=== PATIENT | female | born 1985 | race African-American/Black ===

== ENCOUNTER 2022-08-22 08:00 | Emergency (ER) | payer OTHER ==
[~2022-08-22] VITALS: Ht 167.6 cm; Wt 68.2 kg
[2022-08-22 08:17] VITALS: BP 148/114
[2022-08-22 08:55] LABS: BASOPHILS % 0.6 % (0.0-2.0); EOSINOPHILS % 1.5 % (0.0-5.0); HEMATOCRIT. 43.5 % (36.0-48.0); HEMOGLOBIN. 14.6 g/dL (12.0-16.0); LYMPHOCYTES % 13.9 % (20.0-50.0); MEAN CORPUSCULAR VOLUME 92.6 fL (81.0-99.0); MEAN PLATELET VOLUME 8.1 fl (7.4-10.4); PLATELET 434 x1000/uL (130-400); RED CELL DISTRIBUTION WIDTH 14.8 % (11.6-14.6)
[2022-08-22 09:04] LABS: CHLORIDE 109 mEq/L (98-107)
[2022-08-25] MEDS ORDERED: DOXY100C5 MT (07:58)
== END 2022-08-22 10:18 | disposition left against medical advice (07) ==
LOC: ER 08:00
DX: Z53.21 Procedure and treatment not carried out due to patient leaving prior to being seen by health care provider (principal)
CPT/HCPCS: 36415; 80053; 85025; 99281

== ENCOUNTER 2022-08-22 11:16 | Emergency (ER) | payer OTHER ==
[~2022-08-22] VITALS: Ht 167.6 cm; Wt 68.2 kg
[2022-08-22 11:20] VITALS: O2SAT 95
[2022-08-22] MEDS ORDERED: ONDANSETRON HCL 4MG/2ML INJ IV ONE (12:00)
[2022-08-22] MEDS: FAMOTIDINE 20MG/2ML VIAL IV SCH ×2 (12:00→13:14)
[2022-08-22] MEDS ORDERED: SODIUM CHLORIDE 0.9% 1,000 ML IV ONE (12:00)
[2022-08-22 12:32] LABS: CLARITY URINE CLOUDY (CLEAR); COLOR URINE DARK YELLOW (YELLOW); GLUCOSE URINE NEGATIVE (NEGATIVE); KETONES URINE 3+ (NEGATIVE); LEUKOCYTE ESTERASE URINE 1+ (NEGATIVE); NITRITE URINE NEGATIVE (NEGATIVE); OCCULT BLOOD URINE 2+ (NEGATIVE); PH URINE >=9.0 (4.5-8.0); PROTEIN URINE 2+ (NEGATIVE); SPECIFIC GRAVITY URINE 1.032 (1.005-1.030)
[2022-08-22 12:33] LABS: SQUAMOUS EPITHELIAL CELL URINE 3+ /lpf (RARE/1+); YEAST URINE NONE SEEN
[2022-08-22 12:45] LABS: BACTERIA URINE 2+
[2022-08-22 12:46] LABS: MUCUS URINE 2+ /lpf (< = 2+)
[2022-08-22] MEDS ORDERED: MAGNESIUM/ALUMINUM HYDROXIDE/SIMETHICONE 30ML UDC PO ONE (13:00)
[2022-08-22] MEDS ORDERED: KETOROLAC 30MG/ML VIAL IV ONE (13:00)
[2022-08-22] MEDS ORDERED: METOCLOPRAMIDE HCL 10MG/2ML VIAL IV ONE (14:15)
[2022-08-22] MEDS ORDERED: MORPHINE SULFATE 4 MG/ML CPJ (NOT FOR IM USE) IV ONE (16:15)
[2022-08-22] MEDS ORDERED: IOHEXOL-300 100 ML BOTTLE ONE (17:16)
[2022-08-22] MEDS ORDERED: HYDROCODONE/ACETAMINOPHEN 5/325MG TABLET PO PRN (19:45)
[2022-08-22 20:04] VITALS: BP 144/95; PULSE 81; RESP 16; TEMP 97.5
[2022-08-25] MEDS ORDERED: DOXY100C5 MT (07:58)
== END 2022-08-22 20:06 | disposition home or self-care (01) ==
LOC: ER 11:16
DX: R11.2 Nausea with vomiting, unspecified (principal); Z98.890 Other specified postprocedural states
CPT/HCPCS: 81003; 81025; 74177; 76830; 76856; 96361; 96374; 96375; 99285; Q9967; J3490; J1885; J2765; J2405; J2270; J7030; C1893; Z7610

== ENCOUNTER 2024-01-15 10:17 | Emergency (ER) | payer MEDICAID, OTHER ==
[~2024-01-15] VITALS: Ht 167.6 cm; Wt 68.0 kg
[~2024-01-15 10:17] MED LIST: DOXY100C5 MT
[2024-01-15 10:24] VITALS: O2SAT 100
[2024-01-15] MEDS: KETOROLAC 30MG/ML VIAL IM ONE (11:28)
[2024-01-15] MEDS ORDERED: TOPUD MT (12:16)
[2024-01-15 13:00] VITALS: BP 132/82; PULSE 82; RESP 16; TEMP 37.05852; O2SAT 99
== END 2024-01-15 13:02 | disposition home or self-care (01) ==
LOC: ER 10:17
DX: M79.672 Pain in left foot (principal); M25.572 Pain in left ankle and joints of left foot; W10.9XXA Fall (on) (from) unspecified stairs and steps, initial encounter; Y93.89 Activity, other specified; Y92.89 Other specified places as the place of occurrence of the external cause; Y99.8 Other external cause status
CPT/HCPCS: 81025; 73630; 29515; 96372; 99283; J1885; Z7610